=== PATIENT | female | born 1960 | race Caucasian/White ===

== ENCOUNTER 2017-02-09 15:40 | Emergency (ER) | payer BC, OTHER ==
[~2017-02-09] VITALS: Ht 165.1 cm; Wt 81.6 kg
[~2017-02-09 15:40] MED LIST: GLUCTAB7 PO; MULT-513 PO
[2017-02-09 15:46] VITALS: TEMP 37.2; Ht 165.1 cm; Wt 81.6 kg
[2017-02-09] MEDS ORDERED: IBUP-1277 PO (16:21)
[2017-02-09 16:26] LABS: BASO % 0.5 %; BASO ABS # 0.03 K/uL (0-0.2); COMPLETE YES; EOS % 2.9 %; IG% 0.3 %; LYMPH ABS # 1.42 K/uL (1.2-3.4); MEAN CELL VOLUME 89.2 fL (80-100); MEAN CORPUSCULAR HEMOGLOBIN 29.6 pg (25-34); MEAN CORPUSCULAR HGB CONC 33.2 g/dl (32-36); MEAN PLATELET VOLUME 8.9 fL (7.4-10.4); MONO % 7.6 %; NEUT % 66.7 %; PLATELET COUNT 200 K/uL (130-400); RED BLOOD COUNT 4.15 M/uL (4.2-5.4); WHITE BLOOD COUNT 6.45 K/uL (4.8-10.8)
--- NOTE | 2017-02-09 16:28 | DIAGNOSTIC IMAGING REPORT ---
CHEST ONE VIEW PORTABLE CLINICAL HISTORY: Chest pain. COMPARISON STUDY: No previous studies for comparison. FINDINGS: Lung volumes are normal. Lungs are clear. There is no pneumothorax or pleural effusion. Cardiac size is within normal limits. Pulmonary vascularity is normal. Mediastinal contours are normal. IMPRESSION: No acute cardiopulmonary findings. Electronically signed by: Kenny Glover M.D. 02/09/2017 4:27 PM Dictated Date/Time: 02/09/2017 4:26 PM
[2017-02-09 16:46] LABS: ALT/SGPT 28 U/L (12-78); AST/SGOT 11 U/L (15-37); BLOOD UREA NITROGEN 15 mg/dl (7-18); BUN/CREATININE RATIO 18.7 (10-20); CALCIUM 8.7 mg/dl (8.5-10.1); CARBON DIOXIDE 31 mmol/L (21-32); CHLORIDE 105 mmol/L (98-107); CREATININE 0.82 mg/dl (0.60-1.20); GLUCOSE 83 mg/dl (70-99); POTASSIUM 3.6 mmol/L (3.5-5.1); SODIUM 144 mmol/L (136-145)
[2017-02-09 16:51] LABS: ALKALINE PHOSPHATASE 76 U/L (45-117); CKMB/CK RATIO 1.1 (0-3.0)
[2017-02-09 18:46] VITALS: BP 149/87; PULSE 56; O2SAT 97
--- NOTE | 2017-02-09 23:41 | EMERGENCY ROOM VISIT NOTE ---
History Report prepared by Nohemi: Dionisio Lopez Under the Supervision of: Dr. Julio Blanco M.D. First contact with patient: 16:01 Chief Complaint: CARDIAC ASSESSMENT Stated Complaint: CHEST PAIN History of Present Illness The patient is a 56 year old female who presents to the Emergency Room with complaints of persistent chest pain that began this morning, several hours prior to arrival. The patient states that she was practicing "deep breathing" while at [employer] this morning when she started to experience pain in the right side of her chest. Her pain was worsened with the deep inspiration, but is now improved by laying flat in the bed. She rates her current pain as a 5/10 in severity. The patient is experiencing some pain in her right lower back, but notes that this was present before her chest pain began. The patient has no other complains aside from swelling and itching in the second toe of her right foot. She denies LOC, headache, fevers, chills, diaphoresis, visual changes, neck pain, personal history or family history of aneurysm or pulmonary embolism , uncontrolled hypertension, breathing difficulties, leg swelling, coagulation abnormalities, prolonged travel, recent surgery or immobilization, nausea, vomiting, abdominal pain, melena, hematochezia, urinary symptoms, numbness, weakness, lymphadenopathy, rash, or other complaints. improved by laying down. exercised this morning, no issues back pain. Depp breathing in [employer], pain with deep inspiration. right side, front and back. 5/10 in severity. No recent travel. Swollen right 2nd toe swelling, redness Right upper back hurting for several.days. Source of History: patient Onset: Several hours [employer] Modifying Factors (Worsening): breathing Modifying Factors (Relieving): other (Laying down) Associated Symptoms: + back pain, No SOB, No fevers Review of Systems See HPI for pertinent positives and negatives. A total of ten systems were reviewed and were otherwise negative. Past Medical & Surgical Patient denies any past medical/surgical history Family History Hypertension Social History Smoking Status: Never Smoker Drug Use: none Marital Status: Housing Status: lives with significant other Occupation Status: employed Current/Historical Medications Scheduled PRN Ibuprofen (Advil), 200-600 MG PO BID PRN for Pain Allergies Coded Allergies: No Known Allergies (Unverified , 02/09/17) Physical Exam Vital Signs Date Time Temp Pulse Resp B/P Pulse Ox O2 Delivery O2 Flow Rate FiO2 02/09/17 18:46 56 15 149/87 97 02/09/17 18:37 Room Air 02/09/17 17:17 59 15 142/86 95 Room Air 02/09/17 16:17 Room Air 02/09/17 16:17 Room Air 02/09/17 16:07 58 02/09/17 15:46 37.2 55 18 155/83 98 Room Air Physical Exam GENERAL: Awake, alert, well-appearing, in no distress HENT: Normocephalic, atraumatic. Oropharynx unremarkable. EYES: Normal conjunctiva. Sclera non-icteric. NECK: Supple. No nuchal rigidity. FROM. No JVD. RESPIRATORY: Clear to auscultation. CARDIAC: Regular rate, normal rhythm. Extremities warm and well perfused. Pulses equal. ABDOMEN: Soft, non-distended. No tenderness to palpation. No rebound or guarding. No masses. RECTAL: Deferred. MUSCULOSKELETAL: Chest examination reveals no tenderness. The back is symmetrical on inspection without obvious abnormality. There is no CVA tenderness to palpation. No joint edema. LOWER EXTREMITIES: There is swelling to the distal aspect of the right second toe. Calves are equal size bilaterally and non-tender. No edema. No discoloration. NEURO: Normal sensorium. No sensory or motor deficits noted. SKIN: No rash or jaundice noted. Medical Decision & Procedures ER Provider Diagnostic Interpretation: Radiology results as stated below per my review and radiologist interpretation: CHEST ONE VIEW PORTABLE CLINICAL HISTORY: Chest pain. COMPARISON STUDY: No previous studies for comparison. FINDINGS: Lung volumes are normal. Lungs are clear. There is no pneumothorax or pleural effusion. Cardiac size is within normal limits. Pulmonary vascularity is normal. Mediastinal contours are normal. IMPRESSION: No acute cardiopulmonary findings. Electronically signed by: Kenny Glover M.D. 02/09/2017 4:27 PM Dictated Date/Time: 02/09/2017 4:26 PM Laboratory Results 02/09/17 16:10 Red Blood Count 4.15, Mean Corpuscular Volume 89.2, Mean Corpuscular Hemoglobin 29.6, Mean Corpuscular Hemoglobin Concent 33.2, Mean Platelet Volume 8.9, Neutrophils (%) (Auto) 66.7, Lymphocytes (%) (Auto) 22.0, Monocytes (%) (Auto) 7.6, Eosinophils (%) (Auto) 2.9, Basophils (%) (Auto) 0.5, Neutrophils # (Auto) 4.30, Lymphocytes # (Auto) 1.42, Monocytes # (Auto) 0.49, Eosinophils # (Auto) 0.19, Basophils # (Auto) 0.03 02/09/17 16:10 Test 02/09/17 16:10 02/09/17 16:20 White Blood Count 6.45 K/uL (4.8-10.8) Red Blood Count 4.15 M/uL (4.2-5.4) Hemoglobin 12.3 g/dL (12.0-16.0) Hematocrit 37.0 % (37-47) Mean Corpuscular Volume 89.2 fL (80-100) Mean Corpuscular Hemoglobin 29.6 pg (25-34) Mean Corpuscular Hemoglobin Concent 33.2 g/dl (32-36) Platelet Count 200 K/uL (130-400) Mean Platelet Volume 8.9 fL (7.4-10.4) Neutrophils (%) (Auto) 66.7 % Lymphocytes (%) (Auto) 22.0 % Monocytes (%) (Auto) 7.6 % Eosinophils (%) (Auto) 2.9 % Basophils (%) (Auto) 0.5 % Neutrophils # (Auto) 4.30 K/uL (1.4-6.5) Lymphocytes # (Auto) 1.42 K/uL (1.2-3.4) Monocytes # (Auto) 0.49 K/uL (0.11-0.59) Eosinophils # (Auto) 0.19 K/uL (0-0.5) Basophils # (Auto) 0.03 K/uL (0-0.2) RDW Standard Deviation 42.2 fL (36.4-46.3) RDW Coefficient of Variation 13.0 % (11.5-14.5) Immature Granulocyte % (Auto) 0.3 % Immature Granulocyte # (Auto) 0.02 K/uL (0.00-0.02) Anion Gap 8.0 mmol/L (3-11) Est Creatinine Clear Calc Drug Dose 82.8 ml/min Estimated GFR () 94.0 Estimated GFR (Non- 81.1 BUN/Creatinine Ratio 18.7 (10-20) Calcium Level 8.7 mg/dl (8.5-10.1) Total Bilirubin 0.4 mg/dl (0.2-1) Direct Bilirubin < 0.1 mg/dl (0-0.2) Aspartate Amino Transf (AST/SGOT) 11 U/L (15-37) Alanine Aminotransferase (ALT/SGPT) 28 U/L (12-78) Alkaline Phosphatase 76 U/L (45-117) Total Creatine Kinase 84 U/L (26-192) Creatine Kinase MB 0.9 ng/ml (0.5-3.6) Creatine Kinase MB Ratio 1.1 (0-3.0) Troponin I < 0.015 ng/ml (0-0.045) Total Protein 7.8 gm/dl (6.4-8.2) Albumin 4.0 gm/dl (3.4-5.0) Lipase 190 U/L (73-393) Bedside D-Dimer 422 ng/mlFEU (0-450) Laboratory results reviewed by me ECG Indication: chest pain Rate (beats per minute): 58 Rhythm: sinus bradycardia Findings: T-wave inversion (Anterior) Comparison ECG Date: ECG done as part of stress test in 2015. Similar St, T- wave anteriorly ED Course 1609: The patient was evaluated in room C12. A complete history and physical exam was performed. 1757: I reevaluated the patient. Discussed results and discharge instructions: she verbalized understanding and agreement. The patient is ready for discharge. Medical Decision Triage Nursing notes reviewed. The patient's presentation and history were concerning for chest pain. Etiologies such as pleurisy, cardiac ischemia, aortic dissection, pulmonary embolism, pneumonia, pneumothorax, musculoskeletal, infections, gastrointestinal , as well as others were entertained. The patient was evaluated. She declined analgesia. She was uncomfortable with sitting up or taking a deep breathing and right-sided chest pain. An ECG was performed. She had anterior T-wave inversions. Attempts were made to obtain an old EKG. Her CBC and d-dimer were unremarkable. Chest x-ray was negative. Patient had a stress test done last year and the records were obtained. Baseline resting ECG was similar to ECG today. The patient's diagnostic testing was unremarkable here. She declined analgesia. I suspect that this is musculoskeletal or possibly pleurisy. She has had symptoms for over 2 days and it is right-sided. It is reproducible with deep breathing. She is low risk for PE and d-dimer was negative. Conservative management was discussed and patient was discharged in stable condition. By the evaluation outlined above other emergent etiologies such as those listed in the differential, as well as others, were deemed relatively unlikely. The patient and family were informed about the findings as listed above. All questions were answered and they were pleased with the treatment. Return instructions were outlined and the patient was discharged in stable condition. The patient was referred to her PCP for follow-up this week for a recheck of the current condition. The chart was completed utilizing [employer] Speech voice recognition software. Grammatical errors, random word insertions, pronoun errors, and incomplete sentences are an occasional consequence of this system due to software limitations, ambient noise, and hardware issues. Any formal questions or concerns about the content, text, or information contained within the body of this dictation should be directly addressed to the physician for clarification. Impression Primary Impression: Right-sided chest pain Scribe Attestation The scribe's documentation has been prepared under my direction and personally reviewed by me in its entirety. I confirm that the note above accurately reflects all work, treatment, procedures, and medical decision making performed by me. Departure Information Dispostion Home / Self-Care Referrals No Doctor, Assigned (PCP) Forms IMPORTANT VISIT INFORMATION Patient Instructions [facility] Additional Instructions CHEST PAIN INSTRUCTIONS: Ibuprofen(Motrin, Advil) may be used for fever or pain. Use 600mg every six hours as needed. Take with food. Avoid using more than 2400mg in a 24 hour period. Do not use 2400mg per day for more than three consecutive days without physician direction. Prolonged inappropriate use can lead to stomach upset or ulcers. (AND/OR) Acetaminophen(Tylenol) may be used for fever or pain. Use 1000mg every six hours as needed. Avoid using more than 4000mg in a 24 hour period. Rest and drink plenty of fluids as tolerated. Continue current medications. Avoid strenuous activities and anything that worsens your pain. Resume normal activities once your symptoms resolve. Return to the ER immediately for worsening or persistent chest pain, abdominal pain, vomiting, fevers, chest pains, difficulty breathing, worsening of your condition, or as needed. Follow up with your primary physician in 2-3 days for a recheck of your current condition.
== END 2017-02-09 18:45 | disposition home or self-care (01) ==
LOC: C.EDB 15:40 → C.EDC 18:45
DX: R07.9 Chest pain, unspecified (principal); R00.1 Bradycardia, unspecified